=== PATIENT | female | born 2000 | race Caucasian/White ===

== ENCOUNTER 2022-03-12 16:34 | Emergency (ER) | payer OTHER, SELFPAY ==
[2022-03-12 16:51] VITALS: BP 117/78; PULSE 90; RESP 16; O2SAT 99; BMI 19.8
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
[2022-03-12] MEDS: Cyclobenzaprine HCl 5 MG TABLET PO (17:35)
== END 2022-03-12 17:46 | disposition home or self-care (01) ==
PROVIDERS: Emergency Provider Emergency Medicine
DX: M54.50 Low back pain, unspecified (principal)
CPT/HCPCS: 99282; 99283